=== PATIENT | female | born 1965 | race African-American/Black ===

== ENCOUNTER 2016-10-05 18:12 | Emergency (ER) | payer MEDICAID ==
[~2016-10-05] VITALS: Ht 170.2 cm; Wt 82.0 kg
[~2016-10-05 18:12] MED LIST: CALC-30; GEODON; GLUC1TAB44; LAMICTAL; WELBUTRIN; ZINC50TA2
[2016-10-05] MEDS ORDERED: METHYLPREDNISOLONE SOD SUCC 125 MG/2 ML VIAL IV STA (19:47)
[2016-10-05] MEDS ORDERED: ONDANSETRON HCL 4MG/2ML VIAL IV STA (19:47)
[2016-10-05] MEDS ORDERED: MORPHINE SULFATE 4 MG/ML CPJ (NOT FOR IM USE) IV STA (19:47)
[2016-10-05] MEDS ORDERED: LEVOFLOXACIN 500MG PREMIX 100 ML IV ONE (20:00)
[2016-10-05] MEDS ORDERED: IPRATROPIUM/ALBUTEROL 0.5-3(2.5)MG/3ML NEB HHN ONE (20:00)
[2016-10-05 20:17] LABS: BASOPHILS % 1.2 % (0.0-2.0); EOSINOPHILS % 3.6 % (0.0-5.0); HEMATOCRIT. 36.9 % (36.0-48.0); LYMPHOCYTES % 45.8 % (20.0-50.0); MEAN CORPUSCULAR HEMOGLOBIN 27.4 pg (28.0-32.0); MEAN CORPUSCULAR VOLUME 84.7 fL (81.0-99.0); MEAN PLATELET VOLUME 9.8 fl (7.4-10.4); MONOCYTES % 7.4 % (2.0-8.0); PLATELET 193 x1000/uL (130-400); RED BLOOD CELL COUNT 4.36 mill/uL (4.2-5.4); RED CELL DISTRIBUTION WIDTH 14.2 % (11.6-14.6)
[2016-10-05 20:22] LABS: PARTIAL THROMBOPLASTIN TIME 28.4 sec (24.0-34.0); PROTHROMBIN TIME 10.5 sec
[2016-10-05 20:24] LABS: CARBON DIOXIDE 31 mEq/L (21-32); CHLORIDE 107 mEq/L (98-107)
[2016-10-05 20:29] LABS: CREATINE KINASE 93 IU/L (26-192)
[2016-10-05 20:31] LABS: TROPONIN I < 0.02 ng/mL (0.00-0.04)
[2016-10-05 21:58] LABS: BG BASE EXCESS 1.2 mmol/L (-2.0-2.0); BG CARBOXYHEMOGLOBIN 3.5 % (0.5-1.5); BG DEOXYHEMOGLOBIN 1.8 % (0.0-5.0); BG FRACTION INSPIRED OXYGEN 21; BG METHEMOGLOBIN 0.1 % (0.0-1.5); BG OXYGEN SATURATION 98.1 % (92.0-98.5); BG OXYHEMOGLOBIN 94.6 % (94.0-97.0); BG PCO2 32.4 mmHg (35.0-45.0); BG PH 7.488 (7.350-7.450); BG PO2 109.7 mmHg (75.0-100.0); BG SAMPLE SITE LEFT BRACHIAL; BG TOTAL HEMOGLOBIN 12.6 g/dL (12.0-18.0); BG VENT MODE ROOM AIR
[2016-10-05] MEDS ORDERED: KETOROLAC 30MG/ML VIAL IV ONE (22:15)
[2016-10-05] MEDS ORDERED: PREDNISONE 20MG TABLET PO ONE (22:30)
[2016-10-05] MEDS ORDERED: KETOROLAC 30MG/ML VIAL IM ONE (22:30)
[2016-10-05] MEDS ORDERED: MORPHINE SULFATE 10 MG/ML CPJ IM ONE (22:30)
[2016-10-05] MEDS ORDERED: LEVOFLOXACIN 500MG TABLET PO ONE (22:30)
[2016-10-05 22:39] VITALS: BP 138/91
== END 2016-10-06 05:10 | disposition home or self-care (01) ==
LOC: ER 10-06 04:10
DX: J40 Bronchitis, not specified as acute or chronic (principal); F90.9 Attention-deficit hyperactivity disorder, unspecified type; F17.210 Nicotine dependence, cigarettes, uncomplicated; Z71.6 Tobacco abuse counseling
CPT/HCPCS: 36415; 36600; 71010; 80053; 82375; 82550; 82805; 83605; 83690; 83880; 84443; 84484; 85025; 85610; 85730; 87040; 93005; 94640; 96372; 99285; 99406; J1885; J2270; J7512; Z7610; J7620

== ENCOUNTER 2017-08-04 18:52 | Emergency (ER) | payer MEDICAID ==
[~2017-08-04] VITALS: Ht 170.2 cm; Wt 82.0 kg
[2017-08-04 18:57] VITALS: BP 131/80
== END 2017-08-05 03:39 | disposition home or self-care (01) ==
LOC: ER 19:07
DX: S63.501A Unspecified sprain of right wrist, initial encounter (principal); S70.00XA Contusion of unspecified hip, initial encounter; W10.9XXA Fall (on) (from) unspecified stairs and steps, initial encounter; Y93.89 Activity, other specified; Y92.89 Other specified places as the place of occurrence of the external cause; Y99.8 Other external cause status
CPT/HCPCS: 99283